=== PATIENT | male | born 1945 | race Caucasian/White ===

== ENCOUNTER 2023-07-01 07:11 | Observation (INO) | payer OTHER ==
[2023-07-01] VITALS (32 sets, daily range): BP systolic 126–168; BP diastolic 52–84; PULSE 60–76; RESP 10–20; TEMP 97.1–98; O2SAT 92–100
[~2023-07-01] VITALS: Ht 170.2 cm; Wt 70.6 kg
[~2023-07-01 07:11] MED LIST: ASPI-529 PO; ATOR-2 PO; COLACE; DAILY VITAMIN; FINA5TAB11 PO; GABA-530 PO; LISI20TA28 PO; MIRALAX; VITAMIN B 12; cefazolin 2gm/D5W 100mL 100 ML IV ONE; famotidine 20mg tablet PO ONE; ringers solution, lacted 1,000 ML IV SCH
[2023-07-01] MEDS ORDERED: BUPIVAcaine 2.5mg/ml inj 50ml vial (contains preservative) ONE (14:28)
[2023-07-01] MEDS ORDERED: propofol inj 20 ML IV ONE (15:25)
[2023-07-01] MEDS ORDERED: LIDOcaine 2% (20mg/ml) 5ml vial ONE (15:25)
[2023-07-01] MEDS ORDERED: rocuronium 10mg/ml inj IV ONE (15:25)
[2023-07-01] MEDS ORDERED: dexamethasone sod phosphate 4mg/ml inj. ONE (15:31)
[2023-07-01] MEDS ORDERED: sevoflurane 250ml liquid IH ONE (15:31)
[2023-07-01] MEDS ORDERED: ondansetron/PF 4mg/2ml inj ONE (15:31)
[2023-07-01] MEDS ORDERED: midazolam 1 mg/ML 2ml injection ONE (15:31)
[2023-07-01] MEDS ORDERED: fentaNYL/PF 50MCG/1 ML 2ML syringe ONE (15:31)
[2023-07-01] MEDS ORDERED: morphine 4 MG/ML inj SYRINge IV PRN (15:35)
[2023-07-01] MEDS ORDERED: hydrALAZINE 20mg/ml inj. IV PRN (15:35)
[2023-07-01] MEDS ORDERED: morphine 2 MG/ML inj. syringe IV PRN (15:35)
[2023-07-01] MEDS ORDERED: fentaNYL/PF 50MCG/1 ML 2ML syringe IV PRN ×2 (15:35)
[2023-07-01] MEDS ORDERED: labetalol 20mg/4ml (5mg/ml) syringe IV PRN (15:35)
[2023-07-01] MEDS ORDERED: ringers solution, lacted 1,000 ML IV SCH (15:35)
[2023-07-01] MEDS ORDERED: ondansetron/PF 4mg/2ml inj IV PRN (15:35)
[2023-07-01] MEDS ORDERED: ePHEDrine 50MG/ML INJ. ONE (15:45)
[2023-07-01] MEDS ORDERED: acetaminophen 1,000mg/100ml IV 100 ML IV ONE (15:48)
[2023-07-01] MEDS ORDERED: HYDROcodone/acetaminophen 5mg/325mg tablet PO PRN (15:55)
[2023-07-01] MEDS ORDERED: HYDROcodone/acetaminophen 10/325mg tab PO PRN (15:55)
[2023-07-01] MEDS ORDERED: sugammadex 200mg/2ml injection IV ONE (16:00)
[2023-07-01] MEDS ORDERED: BUPIVAcaine 2.5mg/ml inj 50ml vial (contains preservative) IJ ONE (16:19)
[2023-07-01] MEDS ORDERED: docusate sod 100mg capsule PO SCH (17:50)
[2023-07-01] MEDS ORDERED: MULT-1085 PO (17:56)
[2023-07-01] MEDS ORDERED: LISI2.5T14 PO (17:56)
[2023-07-01] MEDS ORDERED: DOCU100C40 PO (17:56)
[2023-07-01] MEDS ORDERED: POLY119P2 PO (17:56)
[2023-07-01] MEDS ORDERED: CYAN250010 PO (17:56)
[2023-07-01] MEDS ORDERED: gabapentin 100mg capsule PO SCH (21:00)
[2023-07-02 00:45] VITALS: BP 132/56; PULSE 69; RESP 18; O2SAT 95
[2023-07-02 02:00] VITALS: BP 125/52; PULSE 60; RESP 16; TEMP 97.6; O2SAT 97
[2023-07-02 06:00] VITALS: BP 133/64; PULSE 71; RESP 16; TEMP 97.8; O2SAT 98
[2023-07-02 07:55] VITALS: RESP 16; O2SAT 98
[2023-07-02] MEDS ORDERED: lisinopril 2.5mg tablet PO SCH (08:00)
[2023-07-02] MEDS ORDERED: finasteride 5mg tablet PO SCH (08:00)
[2023-07-02] MEDS ORDERED: atorvastatin 20mg tablet PO SCH (08:00)
[2023-07-02] MEDS ORDERED: aspirin 81mg, enteric-coated 1 TAB TABLET.DR PO SCH (08:00)
[2023-07-02] MEDS ORDERED: cyanocobalamin 500mcg tablet PO SCH (08:00)
[2023-07-02] MEDS ORDERED: multivitamins, therapeutics tablet PO SCH (08:00)
[2023-07-02] MEDS ORDERED: polyethylene glycol 3350 17gm powd pack PO SCH (08:00)
[2023-07-02 11:00] VITALS: BP 126/64; PULSE 80; RESP 18; TEMP 98.1; O2SAT 94
== END 2023-07-02 14:36 ==
LOC: PRE-OP 07:11 → PCU 3S 15:51 → PRE-OP 21:09 → PCU 3S 21:10
PROVIDERS: ADMIT Surgery; ATTEND Surgery
DX: K40.90 Unilateral inguinal hernia, without obstruction or gangrene, not specified as recurrent (principal); I10 Essential (primary) hypertension; E78.5 Hyperlipidemia, unspecified; N40.0 Benign prostatic hyperplasia without lower urinary tract symptoms; F01.50 Vascular dementia, unspecified severity, without behavioral disturbance, psychotic disturbance, mood disturbance, and anxiety; M19.90 Unspecified osteoarthritis, unspecified site; F32.A Depression, unspecified; F17.200 Nicotine dependence, unspecified, uncomplicated; Z79.899 Other long term (current) drug therapy
CPT/HCPCS: 49650; 82948; 93005; C1781; G0378; J0131; J0690; J1100; J2250; J2405; J2704; J3010; J3490; J7120; S2900; A4215; A4618; C1758